=== PATIENT | male | born 1975 | race American Indian/Alaskan Native ===

== ENCOUNTER 2017-04-02 12:56 | Emergency (ER) | payer SELFPAY ==
--- NOTE | 2017-04-02 15:30 | Emergency Department Report ---
ED Headache HPI - General Chief Complaint: Headache Stated Complaint: HEADACHES Time Seen by Provider: 04/02/17 15:29 Source: patient, family - History of Present Illness Initial Comments: Patient complain a headache that started this morning when he was at work and he had some blurred vision. He said he is out of his blood pressure medication since August and he cannot remember what he was prescribed. Patient blood pressure is 122/70 at present he said that his headache was 7 out of 10 at the front of his had but that was this morning he is feeling much better now. He said he does not have any headache, nausea, blurred vision at present. Patient' s that he is under a lot of stress and he thinks that's what brought it on he also said he was feeling some tension at the back of his head. He said he has bad vision and couldn't see the eye chart.Pt reports that his only medical problem is high blood pressure which is diagnosed couple years ago he started medication in August and it ran out and he hasn't taken any medication since it ran out. Patient denied any head injury or any history of frequent headaches. It stated in triage nurse that patient headache is 7 out of 10 but patient said his headache was 7 out of 10 this morning when he is at work and now he has no headache. Timing/Duration: other (headache resolved) Recent Head Trauma: occasional headaches Associated Symptoms: denies symptoms Allergies/Adverse Reactions: Allergies No Known Allergies Allergy (Unverified 04/02/17 12:59) ED Review of Systems ROS: Stated complaint: HEADACHES Other details as noted in HPI Comment: All other systems reviewed and negative Constitutional: no symptoms reported Eyes: vision change (report blurred vision this morning ) Respiratory: no symptoms reported Cardiovascular: denies: chest pain, palpitations, dyspnea on exertion, edema, syncope, paroxysmal nocturnal dyspnea Endocrine: no symptoms reported Gastrointestinal: denies: abdominal pain, nausea, vomiting, diarrhea Musculoskeletal: denies: back pain, joint swelling, arthralgia, myalgia Skin: denies: rash Neurological: headache (patient had headache early this morning.). denies: weakness, numbness, paresthesias, confusion, abnormal gait, vertigo Psychiatric: other (he reports that he is under a lot of stress.) ED Past Medical Hx - Past Medical History Previous Medical History?: Yes Hx Hypertension: Yes - Surgical History Past Surgical History?: No - Family History Family history: hypertension - Social History Smoking Status: Never Smoker Substance Use Type: None ED Physical Exam - General Limitations: No Limitations General appearance: alert, in no apparent distress - Head Head exam: Present: atraumatic, normocephalic, normal inspection - Expanded Head Exam Expanded Head exam: Absent: laceration, abrasion, contusion, hematoma, racoon eyes, meyer's sign, general tenderness, tenderness of temporal artery, CSF rhinorrhea , CSF otorrhea - Eye Eye exam: Present: normal appearance, PERRL, EOMI. Absent: nystagmus, periorbital swelling, periorbital tenderness Pupils: Present: normal accommodation - ENT ENT exam: Present: normal exam, normal orophraynx, mucous membranes moist, TM's normal bilaterally, normal external ear exam - Neck Neck exam: Present: normal inspection, full ROM. Absent: tenderness, meningismus, lymphadenopathy - Expanded Neck Exam Expanded Neck exam: Present: other (Cspine ). Absent: tenderness, midline deformity, anterior neck swelling, thyroid mass, tracheal deviation - Respiratory Respiratory exam: Present: normal lung sounds bilaterally. Absent: respiratory distress, wheezes, rales, rhonchi, stridor, chest wall tenderness, accessory muscle use, decreased breath sounds, prolonged expiratory - Cardiovascular Cardiovascular Exam: Present: regular rate, normal rhythm, normal heart sounds. Absent: systolic murmur, diastolic murmur - GI/Abdominal GI/Abdominal exam: Present: soft, normal bowel sounds. Absent: distended, tenderness, rebound, rigid, organomegaly, mass, bruit, pulsatile mass, hernia - Extremities Exam Extremities exam: Present: normal inspection, full ROM, normal capillary refill , other. Absent: tenderness, pedal edema, joint swelling, calf tenderness - Back Exam Back exam: Present: normal inspection, full ROM, other (Patient ambulates without any difficulties). Absent: tenderness, CVA tenderness (R), CVA tenderness (L), muscle spasm, paraspinal tenderness, vertebral tenderness, rash noted - Neurological Exam Neurological exam: Present: alert, oriented X3, normal gait, reflexes normal. Absent: motor sensory deficit - Expanded Neurological Exam Expanded Neurological exam: Absent: innattentive, memory loss-remote event, memory loss- recent event, ataxia, receptive aphasia, expressive aphasia, total aphasia, tremor, protecting the airway Patient oriented to: Present: person, place, time Speech: Present: fluid speech Cranial nerves: EOM's Intact: Normal, Gag Reflex: Normal, Tongue Deviation: Normal, Nystagmus: Normal, Facial Sensation: Normal Cerebellar function: Romberg: Normal Upper motor neuron: Pronator Drift: Normal, Sensory Extinction: Normal Sensory exam: Upper Extremity Light Touch: Normal, Upper Extremity Temperature: Normal, UE 2 Point Discrimination: Normal, Lower Extremity Light Touch: Normal, Lower Extremity Temperature: Normal, LE 2 Point Discrimination: Normal Motor strength exam: RUE: 5, LUE: 5, RLE: 5, LLE: 5 DTR: bicep (R): 2+, bicep (L): 2+, tricep (R): 2+, tricep (L): 2+, knee (R): 2+ , knee (L): 2+, ankle (R): 2+, ankle (L): 2+ Best Eye Response ([place]): (4) open spontaneously Best Motor Response ([place]): (6) obeys commands Best Verbal Response ([place]): (5) oriented [place] Total: 15 - Psychiatric Psychiatric exam: Present: normal affect, normal mood - Skin Skin exam: Present: warm, dry, intact, normal color. Absent: rash ED Course Vital Signs 04/02/17 13:01 Temperature 99.1 F Pulse Rate 90 Respiratory 18 Rate Blood Pressure 122/70 O2 Sat by Pulse 100 Oximetry Vital Signs 04/02/17 04/02/17 13:01 16:34 Temperature 99.1 F 98.3 F Pulse Rate 90 84 Respiratory 18 20 Rate Blood Pressure 122/70 Blood Pressure 120/80 [Left] O2 Sat by Pulse 100 99 Oximetry - Reevaluation(s) Reevaluation #1: 04/02/17 16:35 Patient did not require anything for pain because he said his headache and stressful feeling has resolved and he is no longer having blurred vision. ED Medical Decision Making - Medical Decision Making ED course: An initially presented to the emergency room report that he had headache with blurred vision and pain felt like tension to the back of his head this morning while at work and he was not feeling well. Patient was not having any shortness of breath or chest pain. He said that he thought his blood pressure was up because he has not taken his blood pressure medication since August since he ran out. Patient is now saying that he is feeling much better and he no longer has a headache nor does he have blurred vision. He said he slept and he feels a lot better. Patient states that he just under a lot of stress. Visual acuity in triage was not able to be done because patient said that he could not see the eye chart but after physical assessment patient visual acuity is 20/50 right eye 20/50 left eye and 20/50 OU Instructed patient that he needs to follow-up with the eye doctor because he probably needs glasses. I also discussed with him that his blood pressure is stable and he has not taken any medications since August so I will not be able to refill medication at present. Patient does not know what medication he was on in August. I discussed with him that he needs to keep a log of his blood pressure daily and call [facility] schedule appointment for annual male exam and to take his blood pressure log with him. Patient agrees to do so. Patient discharged home with his family in stable condition. Critical care attestation.: If time is entered above; I have spent that time in minutes in the direct care of this critically ill patient, excluding procedure time. ED Disposition Clinical Impression: Stress headache, Vision decreased, Normal blood pressure, Obesity, morbid, BMI 50 or higher Disposition: DC-01 TO HOME OR SELFCARE Is pt being admited?: No Does the pt Need Aspirin: No Condition: Stable Instructions: Heart Healthy Diet (ED), DASH Eating Plan (ED), Hypertension (ED) , Acute Headache (ED), How to Take a Blood Pressure (ED), Obesity (ED) Additional Instructions: keep a log a few blood pressure and take to [facility] for your well checkup. Please follow instruction and discharged instruction paperwork on diet and exercise. Your BMI is a 108.8 which suggests that you are obese and at risk for multiple medical problems so please follow instructions Referrals: [facility] [Outside] - 04/05/17 Forms: Accompanied Note, Work/School Release Form(ED)
[2017-04-02 16:35] VITALS: BP 120/80
== END 2017-04-02 16:45 | disposition home or self-care (01) ==
LOC: ED 12:56
DX: E66.01 Morbid (severe) obesity due to excess calories (principal); R51 Headache; I10 Essential (primary) hypertension; Z68.43 Body mass index [BMI] 50.0-59.9, adult
CPT/HCPCS: 99282